=== PATIENT | female | born 1935 | race Caucasian/White ===

== ENCOUNTER 2021-11-15 06:49 | Emergency (ER) | payer MEDICARE ==
[2021-11-15 06:54] VITALS: BP_SYST 103
[2021-11-15] MEDS ORDERED: MORPHINE 4 MG INJ. 4 MG/ML VIAL IM ONE ×2 (07:15→08:15)
[2021-11-15] MEDS ORDERED: HYDROcodone/ACETAMIN 5-325 MG TAB (NORCO/ VICODIN) PO ONE (07:15)
[2021-11-15] MEDS ORDERED: OXYC-128 PO (09:27)
[2021-11-15 09:45] VITALS: BP_SYST 127
== END 2021-11-15 09:46 | disposition home or self-care (01) ==
LOC: SED 06:49
DX: S42.292A Other displaced fracture of upper end of left humerus, initial encounter for closed fracture (principal); W10.8XXA Fall (on) (from) other stairs and steps, initial encounter; Y93.01 Activity, walking, marching and hiking; I25.10 Atherosclerotic heart disease of native coronary artery without angina pectoris; Z79.82 Long term (current) use of aspirin; Z95.1 Presence of aortocoronary bypass graft
CPT/HCPCS: 73030; 73080; 96372; 99285; J2270